=== PATIENT | male | born 1950 | race Caucasian/White ===

== ENCOUNTER 2023-09-16 11:56 | Outpatient (RCR) | payer OTHER, SELFPAY | END 2023-09-16 23:59 | disposition home or self-care (01) | LOC: RPT 11:56 | PROVIDERS: ATTENDING PHYSICIAN Specialist; PRIMARYCARE PHYSICIAN Family Medicine | DX: C61 Malignant neoplasm of prostate (principal); Z73.6 Limitation of activities due to disability; M62.81 Muscle weakness (generalized); R27.8 Other lack of coordination | CPT/HCPCS: 97140; 97530 ==

== ENCOUNTER 2023-10-22 15:28 | Outpatient (RCR) | payer OTHER, SELFPAY | END 2023-10-22 15:58 | disposition home or self-care (01) | LOC: RPT 15:28 | PROVIDERS: ATTENDING PHYSICIAN Specialist; PRIMARYCARE PHYSICIAN Family Medicine | DX: N42.89 Other specified disorders of prostate (principal); Z85.46 Personal history of malignant neoplasm of prostate; Z73.6 Limitation of activities due to disability | CPT/HCPCS: 97110; 97530 ==

== ENCOUNTER 2024-09-08 06:17 | Day surgery (SDC) | payer OTHER, SELFPAY | END 2024-09-08 08:35 | disposition home or self-care (01) | LOC: GI 06:17 | PROVIDERS: ATTENDING PHYSICIAN Specialist | DX: Z12.11 Encounter for screening for malignant neoplasm of colon (principal); D12.0 Benign neoplasm of cecum; D12.2 Benign neoplasm of ascending colon; D12.3 Benign neoplasm of transverse colon; K57.30 Diverticulosis of large intestine without perforation or abscess without bleeding; Z86.0101 Personal history of adenomatous and serrated colon polyps; Z80.0 Family history of malignant neoplasm of digestive organs | CPT/HCPCS: 45380; 88305 ==

== ENCOUNTER → 2025-05-05 07:36 | Outpatient (REF) | payer OTHER, SELFPAY | LOC: HWRCS 07:36 | PROVIDERS: ATTENDING PHYSICIAN Physician Assistant Medical; FAMILY PHYSICIAN Family Medicine | DX: I20.89 Other forms of angina pectoris (principal); I25.2 Old myocardial infarction; I25.10 Atherosclerotic heart disease of native coronary artery without angina pectoris; Z95.5 Presence of coronary angioplasty implant and graft | CPT/HCPCS: 78452; 93017; A9500; J2785 ==

== ENCOUNTER 2025-05-06 11:44 | Inpatient (IN) | payer OTHER, SELFPAY ==
[2025-05-06] VITALS (16 sets, daily range): BP systolic 110–148; BP diastolic 72–96; BMI 32.8
[2025-05-06 08:55] LABS: Hematocrit 45.8 % (39.0-52.0); Hemoglobin 16.1 g/dL (13.0-18.0); Mean Corp Hgb Conc. 35.2 g/dL (33.0-37.0); Mean Corpuscular Volume 97.7 fL (80.0-94.0); Platelet Count 243 10^3/uL (130-400); Red Cell Dist. Width 12.7 % (11.5-14.5)
[2025-05-06] MEDS: NSS 294 ML IV (08:58)
[2025-05-06 09:12] LABS: Blood Urea Nitrogen 20 mg/dl (9-20); Calcium 9.7 mg/dl (8.4-10.2); Carbon Dioxide 27 mmol/L (22-30); Chloride 102 mmol/L (98-107); Estimated Creatinine Clearance 76 ml/min; Glucose 116 mg/dl (70-99); Potassium 3.4 mmol/L (3.5-5.1); Sodium 139 mmol/L (135-145); eGFR > 60.00
[2025-05-06] MEDS: LOW STRENGTH ASPIRIN 81 MG PO (09:12)
--- NOTE | 2025-05-06 12:57 | CONSULT.CT ---
Consultation
-
Date/Time Consultation Requested: 05/06/25
Date/Time Consultation Performed: 05/06/25
Requesting Provider: Ilya Verdugo MD
Performing Provider: Damari BLAKE for Ziyad Tang MD
Reason for Consultation: CABG
Patient History
Physicians
Family Physician: Alexey Moore
Outpatient Machine Lacer: Ilya Verdugo
Inpatient Machine Lacer: [facility]
History of Present Illness
74-year-old male with past medical history significant for hypertension, hyperlipidemia, TX with CAD and stents in 2008, LILLIAN with CPAP use, prostate cancer status post prostatectomy in 2022, shingles, colon polypectomy in 2023, right knee meniscus
surgery, cholecystectomy, was admitted for left heart catheterization after abnormal stress test with due to ischemia in the LAD territory and complaint of intermittent left upper extremity pain noted during the past year. Left heart catheterization
reported multi vessel coronary disease and CT surgery consulted for CABG evaluation.
Past Medical History
Past Medical History: Angina (LUE pain), CAD, Cancer (prostate 2022), HTN, Hypercholesterolemia, TX (2008) and Other (shingles; LILLIAN w/CPAP; colon polyps; Class obesity (BMI 32.8); BPH/ED)
Past Surgical History
Past Surgical History: Cholecystectomy, Orthopedic (R knee meniscus surgery ), PCI/Stent (RCA 2008) and Other (Right cataract extraction; colon polypectomy 2023; LASIK B/L)
Dental History
N/A
Family History
Mother: at Age (59) and Cause of (breast cancer)
Father: at Age (75) and Cause of (cancer)
Social History
Alcohol: Daily (3-5 scitch/wine daily)
Drug: None
Tobacco: Former Smoker
Personal:
Living: With Spouse
Employment: Retired (computer customer support specialist)
Allergies
Allergy/AdvReac Type Severity Reaction Status Date / Time
ezetimibe (From Zetia) Allergy joint pain Verified 05/06/25 08:50
morphine Allergy Chest Verified 05/06/25 08:50
Tightness
Home Medications
�Medication �Instructions �Recorded �Confirmed �Type
amlodipine 5 mg tablet 5 mg PO DAILY Blood Pressure 11/23/10 05/06/25 History
aspirin 81 mg tablet,delayed 81 mg PO QPM Blood Clot 11/23/10 05/06/25 History
release Prevention/Tx
atorvastatin 40 mg tablet 40 mg PO QPM High Cholesterol 08/11/11 05/06/25 History
losartan 100 mg tablet (Cozaar) 100 mg PO DAILY Blood Pressure 08/11/11 05/06/25 History
chlorthalidone 25 mg tablet 25 mg PO DAILY Blood Pressure 07/21/23 05/06/25 History
fluticasone propionate 50 2 spray intranasal HS Allergies 07/21/23 05/06/25 History
mcg/actuation nasal
spray,suspension (Flonase Allergy
Relief)
diphenhydramine HCl 50 mg tablet 50 mg PO HS PRN sleep 05/06/25 05/06/25 History
docusate sodium 100 mg capsule 100 mg PO DAILY 05/06/25 05/06/25 History
(Stool Softener)
loratadine 10 mg tablet 10 mg PO DAILY 05/06/25 05/06/25 History
oxycodone-acetaminophen 10 mg-325 1 tab PO Q4H PRN pain 05/06/25 05/06/25 History
mg tablet (Percocet)
tadalafil 5 mg tablet 5 mg PO DAILY 05/06/25 05/06/25 History
Review of Systems
-
History Source: Patient
General: Reports No Symptoms
HEENT: Reports No Symptoms
Respiratory: Reports No Symptoms
Cardiac: Reports Other (LUE pain )
Abdomen/GI: Reports Other (intermittant rectal bleeding 3-5 days month-new this year)
: Reports No Symptoms
Musculoskeletal: Reports No Symptoms
Skin: Reports No Symptoms
Neurological: Reports No Symptoms
Vascular: Reports PVD (documented aortoiliac atherosclerosis)
Physical Exam
Vital Signs
Temp 97.7 F 05/06/25 12:04
Temp route: Oral 05/06/25 12:04
Pulse 73 05/06/25 09:20
Resp Rate 20 05/06/25 12:04
Blood pressure 145/95 05/06/25 08:45
Blood pressure extremity used: Left upper arm 05/06/25 12:04
Position: Lying 05/06/25 12:04
MAP (cuff-Ronaldo Monitor) 112 05/06/25 08:45
SaO2 95 05/06/25 12:04
Oxygen Mode of Delivery Room air 05/06/25 12:04
Can the patient verbally communicate their pain? Yes 05/06/25 08:30
Actual Weight 97.9 kg 05/06/25 08:30
Body Mass Index (BMI) 32.8 05/06/25 08:30
Labs
05/06/25 08:46
05/06/25 08:46
Diagnostic Studies
Heart Catheterization 05/06/25:
High-grade proximal LAD stenosis and probable mid LAD stenosis that was angiographically poorly defined. A sizable first diagonal branch (based on 2009 angiogram) is now noted to be 100% occluded proximally with the distal vessel filling via left
to left collaterals. There is a moderate terminal OM branch with a 60% stenosis and there is an eccentric 60% stenosis on the proximal edge of the overlapping Cypher stents from the mid to distal RCA and distal RCA in-stent restenosis.
Exam
General: Well Developed, Well Nourished and No Apparent Distress
HEENT: Normocephalic, Anicteric, Moist Mucous Membranes and PERRLA
Neck: Trachea Midline
Respiratory: Clear
Cardiac: S1/S2 and Regular Rhythm
GI: Soft, Non Tender and Normal Bowel Sounds
Rectal: Deferred by Provider
Skin: Warm and Dry
Neuro: AO x 3, No Motor Deficits and Nonfocal/Grossly Intact
Extremities: Pulses (+1/4 DP pulses B/L)
Lymph: No Lymphadenopathy
Psych: Calm
Assessment / Plan
-
74 year old male with know CAD, now admitted for multivessel CAD s/p [facility]
- Dr. Tang to review imaging and discuss risk/benefit with patient
- pre-op diagnostics ordered
- STS risk score when diagnostics completed
- will need to hold losartan 48 hours pre-op
Data Reviewed
-
EKG: Report Reviewed by me and Discussed with Physician
Menu Planner: Report Reviewed by me and Discussed with Physician
Echo: Report Reviewed by me and Discussed with Physician
Radiology: Report Reviewed by me and Discussed with Physician
Labs: Labs Reviewed by me and Discussed with Physician
Old Records: Reviewed
[2025-05-06 13:49] LABS: Albumin 4.7 g/dl (3.5-5.0)
--- NOTE | 2025-05-06 14:42 | ITS.CL.CATH ---
[facility] - Catheterization
Cardiac Catheterization
Procedure Report:
LEFT HEART CATHETERIZATION
Date of Procedure: May 06, 2025
Referring: Dr. Ilya Verdugo
PROCEDURES:
1. Left heart catheterization with coronary and single-plane left ventriculography
2. Selective left subclavian angiography and pullback to assess for gradient
INDICATION: This is a 74-year-old gentleman with a past medical history notable for an inferior wall myocardial infarction in November 2008. He underwent successful placement of overlapping 3.5 x 33 mm and 3.0 x 33 mm Cypher stents from the mid to
distal right coronary artery. The stented segment was postdilated with a 3.75 mm noncompliant balloon. He presented to our office for evaluation of substernal chest tightness and left arm discomfort beginning over the past 4 to 5 months. He
states that symptoms typically are worse at the beginning of physical activity and slowly improve. He does have a history of alcohol consumption between 2 and 5 drinks daily. He was a former smoker stopping in 2019. A recent stress study was
notable for a moderate to large reversible defect in the mid to distal anterior wall and a moderate reversible defect in the mid inferolateral basal inferolateral and apical inferior lowe. He is now referred for coronary angiography.
ACCESS: Attempted right radial access. Heavy calcification noted in the innominate artery. A baby J-wire could cross the calcified segment, however, diagnostic catheters encountered significant difficulty in crossing this calcified plaque and the
decision was made to abandon radial approach in favor of right common femoral arterial approach. Ultrasound guidance was utilized and a 6 Kyr[place]z sheath was inserted.
HEMODYNAMICS : (mmHg)
AO (s/d) : 133/76
LV (s/d) : 133/9
LVEDP : 38
Note: Heavy innominate calcification with inability to pass catheter from the right subclavian to the ascending aorta
CORONARY FINDINGS: Three-vessel coronary calcification
DOMINANCE: Right
LEFT MAIN: Short and unobstructed
LEFT ANTERIOR DESCENDING: Eccentric shaggy 95% proximal LAD stenosis. The first diagonal branch arises from the proximal third of the LAD and was noted to supply a moderate-sized territory on the angiogram from 2008. The first diagonal branch is
now occluded with the distal vessel filling via left to left collaterals. The mid LAD just beyond the diagonal branch has a hazy eccentric stenosis that is angiographically poorly defined. The mid to distal LAD is a large-caliber vessel with minor
irregularities.
CIRCUMFLEX: The circumflex gives rise to a small OM1, moderate caliber OM 2 and moderate caliber OM 3 that has a 60% mid stenosis.
RIGHT CORONARY ARTERY: The right coronary artery is a dominant vessel with overlapping 3.5 x 33 mm and 3.0 x 33 mm Cypher stents from the mid to distal RCA. There is a eccentric 60% stenosis on the proximal edge of the right coronary stents and
moderate 30-40% in-stent restenosis in the distal stent before the origin of the PDA.
VENTRICULOGRAPHY: Left ventriculography was performed in an CARVAJAL projection. The digital single-plane left ventricular ejection fraction is visually estimated at 60%.
LEFT SUBCLAVIAN ANGIOGRAPHY: A JR4 catheter was positioned at the origin of the left subclavian artery and hand-injection was performed to assess for significant atherosclerotic disease in the subclavian artery if the BOWENS graft were to be utilized.
The subclavian is moderately calcified. The JR4 catheter was advanced distally near the axillary artery and slow pullback was performed. There was no significant gradient noted on pullback across the moderate plaque in the proximal subclavian
artery.
SEDATION: 47 minutes of procedural sedation was utilized. An independent certified medical biller was present to assist with and help manage the patient's level of consciousness and physiologic status.
RADIATION SUMMARY: Fluoro Time (min): 11.1, Dose (mGy): 871, DAP (Gy.cm2) : 63.6
Closure Device: 6 Kyr[place]z Angio-Seal RFA and radial band right radial artery
CONCLUSIONS
1. Multivessel coronary artery disease with high-grade proximal LAD stenosis and probable mid LAD stenosis that was angiographically poorly defined. A sizable first diagonal branch (based on 2009 angiogram) is now noted to be 100% occluded
proximally with the distal vessel filling via left to left collaterals. There is a moderate terminal OM branch with a 60% stenosis and there is an eccentric 60% stenosis on the proximal edge of the overlapping Cypher stents from the mid to distal
RCA and distal RCA in-stent restenosis.
2. Preserved LV systolic function
3. Moderate plaque but no significant gradient was noted on pullback of a JR4 catheter from the axillary artery to the proximal descending aorta
RECOMMENDATIONS
1. Will consult CT surgery to consider surgical revascularization of LAD, diagonal, OM, and PDA.
Copy to: Dr. Ilya Verdugo
[2025-05-06] MEDS: KCL 40 MEQ PO (16:04)
[2025-05-06] MEDS: LASIX 40 MG IV (16:05)
--- NOTE | 2025-05-06 16:15 | CM ---
Chart reviewed. Patient is independent of ADLS, lives with his SO in a 1 [address], 3 [address], 0 DME. Plan is for the patient to return home. CM to follow
[2025-05-06] MEDS: LIPITOR 40 MG PO (17:51)
[2025-05-06] MEDS: ASPIR LOW (ENTERIC COATED) 81 MG PO (17:52)
--- NOTE | 2025-05-06 18:18 | PTCARENOTE ---
Addendum entered by Saniya Ybarra RN 05/06/25 18:21:
right groin site cdi.
Original Note:
pt is sr on the monitor,hr in the 90s,vss. pt offers no complaints at this time. right radial dressing is cdi. pt educated on plan of care for the evening and pt verbalized understanding. pt now ambulating in room and tolerating well. call toth
within reach.
[2025-05-06] MEDS: BENADRYL 50 MG PO (22:28)
[2025-05-07] VITALS (8 sets, daily range): BP systolic 105–148; BP diastolic 68–87; BMI 32.0
[2025-05-07 03:20] LABS: Hematocrit 43.6 % (39.0-52.0); Hemoglobin 15.6 g/dL (13.0-18.0); Mean Corp Hgb Conc. 35.8 g/dL (33.0-37.0); Mean Corpuscular Volume 97.1 fL (80.0-94.0); Platelet Count 224 10^3/uL (130-400); Red Cell Dist. Width 12.5 % (11.5-14.5)
[2025-05-07 03:32] LABS: INR 1.00; PT 13.5 Sec (11.4-14.6)
[2025-05-07 03:33] LABS: APTT 26.1 Sec (23.4-35.0)
[2025-05-07 03:54] LABS: ALT (SGPT) 61 U/L (0-50); AST (SGOT) 51 U/L (17-59); Albumin 4.4 g/dl (3.5-5.0); Alkaline Phosphatase 68 U/L (38-126); Blood Urea Nitrogen 20 mg/dl (9-20); Calcium 9.2 mg/dl (8.4-10.2); Carbon Dioxide 26 mmol/L (22-30); Chloride 103 mmol/L (98-107); Estimated Creatinine Clearance 75 ml/min; Glucose 108 mg/dl (70-99); HDL Cholesterol 34 mg/dl; Potassium 3.3 mmol/L (3.5-5.1); Sodium 138 mmol/L (135-145); Total Protein 7.2 g/dl (6.3-8.2); eGFR > 60.00
[2025-05-07 04:22] LABS: LDL Cholesterol, Direct 79 mg/dl
--- NOTE | 2025-05-07 04:55 | PTCARENOTE ---
Pt NSR to SB overnight. VSS. Pt denies any pain or discomfort. Pt using own CPAP at HS. Ambulates independently in the room. Call navneet w/in reach
[2025-05-07] MEDS: KCL 40 MEQ PO (06:03)
[2025-05-07] MEDS: CLARITIN 10 MG PO (08:22)
[2025-05-07] MEDS: COLACE 100 MG PO (08:22)
[2025-05-07] MEDS: NORVASC 5 MG PO (08:22)
[2025-05-07] MEDS: KCL 20 MEQ PO (08:23)
[2025-05-07] MEDS: COZAAR 100 MG PO (08:26)
[2025-05-07] MEDS: TOPROL XL 25 MG PO (08:26)
--- NOTE | 2025-05-07 08:37 | W.PN.CARDCBS ---
Addendum entered and electronically signed by Carlos Kearns MD 05/07/25 10:02:
I saw and examined the patient.
The SALES AGENT [employer] or PA's note was reviewed and I agree with the note.
Comment: General: Well developed, well nourished in NAD.
Neck: Supple, no JVD, HJR, carotids +2 B/L, no bruits bilaterally.
Heart: Non displaced PMI, RRR, no murmurs, No S3, S4, no rubs.
Lungs: Scattered rhonchi
Extremities: No clubbing, cyanosis or edema bilaterally.
Neuro: Grossly nonfocal, awake, alert and oriented x3.
Stable cardiology status. Await timing for CABG. He is for CAT scan of chest. Hold losartan
Original Note:
Today's Communication / Plan
-
Await CT surgery recommendations regarding revascularization
Will put home losartan on hold
Impression / Plan
-
Primary odd job worker: Dr. Verdugo
Impression:
CAD
-Stents in 2008 RCA, mid to distal
-Cardiac cath 05/06/2025 with multi vessel CAD
-Considering surgical revascularization, has been seen by CT surgery
Abnormal stress test-ischemia in LAD territory 04/2025
Hypertension
Hyperlipidemia
Inferior IL 2008
Obstructive sleep apnea on CPAP
Prostate cancer status post prostatectomy 2022
Shingles
Colon polypectomy in 2023
Right knee meniscus surgery
Cholecystectomy
Cardiovascular diagnostic testing:
LHC 05/06/25: High-grade proximal LAD stenosis and probable mid LAD stenosis that was angiographically poorly defined. A sizable first diagonal branch (based on 2008 angiogram) is now noted to be 100% occluded proximally with the distal vessel
filling via left to left collaterals. There is a moderate terminal OM branch with a 60% stenosis and there is an eccentric 60% stenosis on the proximal edge of the overlapping Cypher stents from the mid to distal RCA and distal RCA in-stent
restenosis
Echo 05/06/2025: EF 50 to 55%, mild LVH, RV normal size and function, mild aortic sclerosis, mild MR
Lexiscan nuclear stress test 05/05/2025: Moderate to large sized moderate to severe perfusion defects in apex, fixed, mid anterior wall that was reversible. Moderate size moderate perfusion defect in the inferior apical, mid inferior lateral, basal
inferior lateral regions which was partially reversible consistent with ischemia
Plan:
- Multivessel CAD on recent cardiac cath
- Surgical revascularization being considered and workup for CABG in progress
- Continue aspirin, statin, beta-jinny, amlodipine
- Will put home losartan on hold in anticipation of possible CT surgery. He did receive a dose today 05/07
- Home chlorthalidone on hold
Progress Note - Mate Relief
Subjective
Date of Service: May 07, 2025
Denies chest pain, shortness of breath
Objective
Labs:
05/07/25 03:02
05/07/25 03:02
Labs
Hgb 15.6 g/dL (13.0-18.0) 05/07/25 03:02
Hct 43.6 % (39.0-52.0) 05/07/25 03:02
Plt Count 224 10^3/uL (130-400) 05/07/25 03:02
PT 13.5 Sec (11.4-14.6) 05/07/25 03:02
INR 1.00 05/07/25 03:02
APTT 26.1 Sec (23.4-35.0) 05/07/25 03:02
Sodium 138 mmol/L (135-145) 05/07/25 03:02
Potassium 3.3 mmol/L (3.5-5.1) L 05/07/25 03:02
BUN 20 mg/dl (9-20) 05/07/25 03:02
Creatinine 1.0 mg/dL (0.7-1.3) 05/07/25 03:02
Glucose 108 mg/dl (70-99) H 05/07/25 03:02
Vital Signs and I&O:
Vital Signs
Temp Pulse Resp BP Pulse Ox
98.0 F 80 18 148/75 95
05/07/25 07:36 05/07/25 08:26 05/07/25 07:36 05/07/25 08:26 05/07/25 07:36
Vital Signs
Temp Pulse Resp BP Pulse Ox
98.0 F 80 18 148/75 95
05/07/25 07:36 05/07/25 08:26 05/07/25 07:36 05/07/25 08:26 05/07/25 07:36
Intake & Output
05/05/25 05/06/25 05/07/25 05/08/25
06:59 06:59 06:59 06:59
Intake Total 774 / 774
Output Total 825 / 825
Balance -51 / -51
Physical Exam
Physical Exam
GEN: No distress, awake, Ox3
HEENT: supple, anicteric, mmm
LUNGS: CTA, no wheezes/rales
CV: Reg, S1/S2, no murmur
ABD: soft, BS+, NT/ND
EXT: No edema
NEURO: Gross non-focal
SKIN: No rash
[2025-05-07 11:11] LABS: Glycohemoglobin (HgbA1c) 5.3 % (4.0-5.6)
[2025-05-07] MEDS: LIPITOR 40 MG PO (18:06)
[2025-05-07] MEDS: ASPIR LOW (ENTERIC COATED) 81 MG PO (18:06)
[2025-05-07] MEDS: LOVENOX 40 MG SC (18:06)
--- NOTE | 2025-05-07 20:51 | PTCARENOTE ---
assumed care of patient at the change of shift. resting in the chair comfortably. independent in the room. denies any cp/sob. SR on tele-70s. dressing removed from cath sites- R radial and groin. sites intact. + pulses/no edema. reviewed plan of
care with patient and verbalized understanding. IS provided. educated on importance. call toth within reach. makes needs known.
[2025-05-07 21:27] LABS: Hepatitis C Antibody Negative (Negative)
[2025-05-07] MEDS: BENADRYL 50 MG PO (22:23)
[2025-05-08 03:39] VITALS: BP 124/85
[2025-05-08 04:25] LABS: Hematocrit 43.8 % (39.0-52.0); Hemoglobin 15.5 g/dL (13.0-18.0); Mean Corp Hgb Conc. 35.4 g/dL (33.0-37.0); Mean Corpuscular Volume 97.6 fL (80.0-94.0); Platelet Count 234 10^3/uL (130-400); Red Cell Dist. Width 12.5 % (11.5-14.5)
[2025-05-08 04:52] LABS: Blood Urea Nitrogen 21 mg/dl (9-20); Calcium 9.8 mg/dl (8.4-10.2); Carbon Dioxide 26 mmol/L (22-30); Chloride 103 mmol/L (98-107); Estimated Creatinine Clearance 75 ml/min; Glucose 101 mg/dl (70-99); Magnesium 2.2 mg/dl (1.6-2.3); Potassium 3.4 mmol/L (3.5-5.1); Sodium 138 mmol/L (135-145); eGFR > 60.00
[2025-05-08] MEDS: KCL 40 MEQ PO (06:07)
--- NOTE | 2025-05-08 06:50 | W.PN.CT ---
Today's Communication / Plan
-
Plan:
-Cont. current medical management per primary team
-Cont. current meds (ASA, Lipitor, Toprol Xl)
-Avoid DARCY-I/ARBs/CCB x 48hrs prior to OR, will place both Cozaar and Norvasc on hold
-Replete K+
-Ongoing preop evaluation/workup
-For CABG +/- LAAE by Dr. Tang on Wednesday 05/09
-Will cont. to closely monitor
Assessment / Plan
-
Assessment:
-Severe multivessel CAD
-Hx CAD/Inferior RI S/P PCI with cypher stents to mid-distal RCA 2008
-Abnormal stress test-ischemia in LAD territory 04/2025
-LVEF 50-55%
-Mild MR
-Hypertension
-Hyperlipidemia
-Class 1 obesity (BMI 32)
-Obstructive sleep apnea (on CPAP @ home)
-Former tobacco use
-Shingles
-Prostate cancer S/P prostatectomy, 2022
-Colon polyps S/P polypectomy, 2023; occasional rectal bleeds
-S/P Right knee meniscus surgery
-S/P Right cataract extraction
-S/p LASIK
-S/P Cholecystectomy
Discussed patient care with: Cardiology, Nursing, Pharmacy and Care Team
Subjective
-
Date of Service: May 08, 2025
No issues overnight. Denies CP/SOB
Objective Data
-
Lab Results
05/08/25 03:39
05/08/25 03:39
PT 13.5 Sec (11.4-14.6) 05/07/25 03:02
INR 1.00 05/07/25 03:02
APTT 26.1 Sec (23.4-35.0) 05/07/25 03:02
Vital Signs
Vital Signs
Temp Pulse Resp BP Pulse Ox
98.2 F 53 20 124/85 96
05/08/25 03:57 05/08/25 05:00 05/08/25 03:57 05/08/25 03:39 05/08/25 03:57
CT Intake/Output/Weight
05/07/25 05/07/25 05/08/25
06:59 18:59 06:59
Intake Total 480 / 480
Output Total 625 / 825 250 / 450 200 / 450
Balance -625 / -51 230 / 30 -200 / 30
SaO2: 96 (RA)
Physical Exam
-
General: Awake, Oriented and AOx3
Cardiovascular: Regular rate & rhythm, No Murmurs, No Rub and No Gallop
Respiratory: Decreased Breath Sounds (at bases)
Extremities: No Edema
Data Reviewed
-
Lab Results: Results Reviewed
Medications: Active Meds Reviewed
Chest X-Ray: Report Reviewed and Image Reviewed
ECG: Report Reviewed and Image Reviewed
[2025-05-08 07:13] VITALS: BP 118/77
[2025-05-08] MEDS: TOPROL XL 25 MG PO (08:25)
[2025-05-08] MEDS: CLARITIN 10 MG PO (08:25)
[2025-05-08] MEDS: COLACE 100 MG PO (08:25)
[2025-05-08] MEDS: KCL 20 MEQ PO (08:26)
--- NOTE | 2025-05-08 08:41 | W.PN.CARDCBS ---
Today's Communication / Plan
-
For CABG in a.m.
Impression / Plan
-
Primary relationship assoc: Dr. Verdugo
Impression:
CAD
-Stents in 2008 RCA, mid to distal
-Cardiac cath 05/06/2025 with multi vessel CAD
-Considering surgical revascularization, has been seen by CT surgery
Abnormal stress test-ischemia in LAD territory 04/2025
Hypertension
Hyperlipidemia
Inferior SD 2008
Obstructive sleep apnea on CPAP
Prostate cancer status post prostatectomy 2022
Shingles
Colon polypectomy in 2023
Right knee meniscus surgery
Cholecystectomy
Cardiovascular diagnostic testing:
LHC 05/06/25: High-grade proximal LAD stenosis and probable mid LAD stenosis that was angiographically poorly defined. A sizable first diagonal branch (based on 2008 angiogram) is now noted to be 100% occluded proximally with the distal vessel
filling via left to left collaterals. There is a moderate terminal OM branch with a 60% stenosis and there is an eccentric 60% stenosis on the proximal edge of the overlapping Cypher stents from the mid to distal RCA and distal RCA in-stent
restenosis
Echo 05/06/2025: EF 50 to 55%, mild LVH, RV normal size and function, mild aortic sclerosis, mild MR
Lexiscan nuclear stress test 05/05/2025: Moderate to large sized moderate to severe perfusion defects in apex, fixed, mid anterior wall that was reversible. Moderate size moderate perfusion defect in the inferior apical, mid inferior lateral, basal
inferior lateral regions which was partially reversible consistent with ischemia
Plan:
For CABG in a.m.
Chlorthalidone and losartan on hold
Progress Note - Sap Bpc Architect
Subjective
Date of Service: May 08, 2025
No chest pain or shortness of breath
Objective
Labs:
05/08/25 03:39
05/08/25 03:39
Labs
Hgb 15.5 g/dL (13.0-18.0) 05/08/25 03:39
Hct 43.8 % (39.0-52.0) 05/08/25 03:39
Plt Count 234 10^3/uL (130-400) 05/08/25 03:39
PT 13.5 Sec (11.4-14.6) 05/07/25 03:02
INR 1.00 05/07/25 03:02
APTT 26.1 Sec (23.4-35.0) 05/07/25 03:02
Sodium 138 mmol/L (135-145) 05/08/25 03:39
Potassium 3.4 mmol/L (3.5-5.1) L 05/08/25 03:39
BUN 21 mg/dl (9-20) H 05/08/25 03:39
Creatinine 1.0 mg/dL (0.7-1.3) 05/08/25 03:39
Glucose 101 mg/dl (70-99) H 05/08/25 03:39
Vital Signs and I&O:
Vital Signs
Temp Pulse Resp BP Pulse Ox
98.3 F 80 20 118/77 96
05/08/25 07:15 05/08/25 08:25 05/08/25 07:15 05/08/25 08:25 05/08/25 07:32
Vital Signs
Temp Pulse Resp BP Pulse Ox
98.3 F 80 20 118/77 96
05/08/25 07:15 05/08/25 08:25 05/08/25 07:15 05/08/25 08:25 05/08/25 07:32
Intake & Output
05/06/25 05/07/25 05/08/25 05/09/25
06:59 06:59 06:59 06:59
Intake Total 774 / 774 480 / 480
Output Total 825 / 825 450 / 450
Balance -51 / -51 30 / 30
Physical Exam
Physical Exam
General: Well developed, well nourished in NAD.
Neck: Supple, no JVD, HJR, carotids +2 B/L, no bruits bilaterally.
Heart: Non displaced PMI, RRR, no murmurs, No S3, S4, no rubs.
Lungs: Clear to auscultation bilaterally, no wheeze, rhonchi, rubs bilaterally,
normal expiratory phase.
Extremities: No clubbing, cyanosis or edema bilaterally.
Neuro: Grossly nonfocal, awake, alert and oriented x3.
--- NOTE | 2025-05-08 09:05 | PTCARENOTE ---
received patient this am sitting in chair eating breakfast. monitor shows NSR, VSS. MSAS score is 0. patient is waiting to hear from CVsurgeon today. I/S 2700, patient wears CPAP at night.
--- NOTE | 2025-05-08 10:25 | W.PN.UPDATE ---
Update Note
Progress Note Update
CARDIAC SURGERY ATTENDING:
It was my extreme pleasure to meet with Mr. Hector Tomlin. He is a very pleasant 74-year-old gentleman with a history of CAD status post prior stenting to his RCA in 2008. He recently underwent an stress test that demonstrated abnormal stress test
induced ischemia in his LAD territory. He underwent cardiac catheterization on 05/06/2025 that demonstrated multivessel CAD. He had an echocardiogram that same day which demonstrated an LVEF of 50 to 55% with mild LVH, normal RV function, mild
aortic sclerosis and mild MR. Given his multivessel CAD, I was asked to evaluate for potential for surgical coronary revascularization. On review of his cardiac catheterization imaging, he would primarily benefit from grafting of his LAD, with
additional grafts to his RCA and his occluded diagonal. His terminal left circumflex also has disease, but this coronary is likely too small to accommodate surgical bypass.
Unfortunately, during the course of his workup, he underwent a CT chest without contrast that demonstrated profound ascending aortic and arch calcifications. These preclude cross-clamp application. It is also highly likely that proximal
anastomoses would be challenging given this degree of aortic calcification. I have asked my interventional cardiology colleagues to reassess for PCI potential. It is my hope that this is possible as I believe this will be associated with a more
favorable risk versus benefit profile. I discussed this with the patient who is agreeable. I would offer surgical backup should PCI options be deemed appropriate. I will keep the patient n.p.o. postmidnight tonight for the potential of
intervention tomorrow.
Thank you for the opportunity to participate in the care of this kind gentleman.
Ziyad Tang MD
[phone]
[2025-05-08 11:41] VITALS: BP 126/76
[2025-05-08 15:57] VITALS: BP 124/76
[2025-05-08] MEDS: LOVENOX 40 MG SC (17:13)
[2025-05-08] MEDS: LIPITOR 40 MG PO (17:14)
[2025-05-08] MEDS: ASPIR LOW (ENTERIC COATED) 81 MG PO (17:14)
[2025-05-08 19:05] VITALS: BP 150/79
[2025-05-08 22:43] VITALS: BP 120/77
[2025-05-08] MEDS: BENADRYL 50 MG PO (22:45)
[2025-05-09 03:24] VITALS: BP 124/83
[2025-05-09 03:26] VITALS: BMI 32.2
--- NOTE | 2025-05-09 04:25 | PTCARENOTE ---
Pt NSR to SB on monitor. VSS. MSAS d/c per protocol. Pt denies SOB or any discomfort. Independent in the room. NPO after midnight. Call navneet w/in reach
[2025-05-09 04:49] LABS: Blood Urea Nitrogen 16 mg/dl (9-20); Calcium 9.6 mg/dl (8.4-10.2); Carbon Dioxide 29 mmol/L (22-30); Chloride 104 mmol/L (98-107); Estimated Creatinine Clearance 75 ml/min; Glucose 100 mg/dl (70-99); Magnesium 2.1 mg/dl (1.6-2.3); Potassium 3.7 mmol/L (3.5-5.1); Sodium 138 mmol/L (135-145); eGFR > 60.00
[2025-05-09 07:46] VITALS: BP 131/91
[2025-05-09] MEDS: COLACE 100 MG PO (08:27)
[2025-05-09] MEDS: CLARITIN 10 MG PO (08:27)
[2025-05-09] MEDS: TOPROL XL 25 MG PO (08:27)
[2025-05-09] MEDS: KCL 20 MEQ PO (08:27)
--- NOTE | 2025-05-09 09:00 | PTCARENOTE ---
received PT AAOx4 w/o complaints of pain; NSR vss, RA clear lung sounds; GI and wnl; cath puncture sights CDI; PIV's CDI; see worklist for detailed assessment
--- NOTE | 2025-05-09 09:22 | W.PN.CARDCBS ---
Addendum entered and electronically signed by HAYDEN Castillo 05/16/25 17:29:
Additional impression: Hypokalemia.
Addendum entered and electronically signed by Carlos Kearns MD 05/09/25 10:09:
I saw and examined the patient.
The SERVICE CENTER ASSISTANT or PA's note was reviewed and I agree with the note.
Comment: General: Well developed, well nourished in NAD.
Neck: Supple, no JVD, HJR, carotids +2 B/L, no bruits bilaterally.
Heart: Non displaced PMI, RRR, no murmurs, No S3, S4, no rubs.
Lungs: Clear to auscultation bilaterally, no wheeze, rhonchi, rubs bilaterally,
normal expiratory phase.
Extremities: No clubbing, cyanosis or edema bilaterally.
Neuro: Grossly nonfocal, awake, alert and oriented x3.
Stable cardiology status. Await timing for PCI which likely will be 05/10. Discussed with patient and on phone. Discussed with nursing.
Original Note:
Today's Communication / Plan
-
-await LHC in next 1-2 days
-increase statin
Impression / Plan
-
Primary armed security officer: Dr. Verdugo
Impression:
CAD
-Stents in 2008 RCA, mid to distal
-Cardiac cath 05/06/2025 with multi vessel CAD
-Consideration for surgical revascularization but pre-op CT chest with ascending aortic and arch calcifications that preclude cross clamp application and increase surgical risk
Abnormal stress test-ischemia in LAD territory 04/2025
Hypertension
Hyperlipidemia
Inferior [place] 2008
Obstructive sleep apnea on CPAP
Prostate cancer status post prostatectomy 2022
Shingles
Colon polypectomy in 2023
Right knee meniscus surgery
Cholecystectomy
Cardiovascular diagnostic testing:
LHC 05/06/25: High-grade proximal LAD stenosis and probable mid LAD stenosis that was angiographically poorly defined. A sizable first diagonal branch (based on 2009 angiogram) is now noted to be 100% occluded proximally with the distal vessel
filling via left to left collaterals. There is a moderate terminal OM branch with a 60% stenosis and there is an eccentric 60% stenosis on the proximal edge of the overlapping Cypher stents from the mid to distal RCA and distal RCA in-stent
restenosis
Echo 05/06/2025: EF 50 to 55%, mild LVH, RV normal size and function, mild aortic sclerosis, mild MR
Lexiscan nuclear stress test 05/05/2025: Moderate to large sized moderate to severe perfusion defects in apex, fixed, mid anterior wall that was reversible. Moderate size moderate perfusion defect in the inferior apical, mid inferior lateral, basal
inferior lateral regions which was partially reversible consistent with ischemia
Plan:
- CT surgery evaluated patient for revascularization -chest CT without contrast demonstrated profound ascending aortic and arch calcifications which preclude cross-clamp application and make proximal anastomosis challenging. CT surgery has
recommended interventional treatment of CAD.
-Plan for left heart cath with stenting 05/10 or 05/11
-Chlorthalidone, losartan on hold, will continue to hold until postprocedure
-Amlodipine on hold - consider resume if BPs elevated
-no CP
-cont ASA, statin, beta jinny
-FLP 16: LDL 79, HDL 34, TG 423, tchol 172- increase Atorvastatin to 80 mg, goal LDL <55
Progress Note - Pot Room Supervisor
Subjective
Date of Service: May 09, 2025
no CP
frustrated that not candidate for CABG and may need to wait for C
Objective
Labs:
05/08/25 03:39
05/09/25 03:30
Labs
Hgb 15.5 g/dL (13.0-18.0) 05/08/25 03:39
Hct 43.8 % (39.0-52.0) 05/08/25 03:39
Plt Count 234 10^3/uL (130-400) 05/08/25 03:39
PT 13.5 Sec (11.4-14.6) 05/07/25 03:02
INR 1.00 05/07/25 03:02
APTT 26.1 Sec (23.4-35.0) 05/07/25 03:02
Sodium 138 mmol/L (135-145) 05/09/25 03:30
Potassium 3.7 mmol/L (3.5-5.1) 05/09/25 03:30
BUN 16 mg/dl (9-20) 05/09/25 03:30
Creatinine 1.0 mg/dL (0.7-1.3) 05/09/25 03:30
Glucose 100 mg/dl (70-99) H 05/09/25 03:30
Vital Signs and I&O:
Vital Signs
Temp Pulse Resp BP Pulse Ox
97.9 F 55 16 131/91 97
05/09/25 07:44 05/09/25 07:44 05/09/25 07:44 05/09/25 08:27 05/09/25 07:44
Vital Signs
Temp Pulse Resp BP Pulse Ox
97.9 F 55 16 131/91 97
05/09/25 07:44 05/09/25 07:44 05/09/25 07:44 05/09/25 08:27 05/09/25 07:44
Intake & Output
05/07/25 05/08/25 05/09/25 05/10/25
06:59 06:59 06:59 06:59
Intake Total 774 / 774 480 / 480
Output Total 825 / 825 450 / 450
Balance -51 / -51
Physical Exam
Physical Exam
GEN: No distress, awake, Ox3
HEENT: supple, anicteric, mmm
LUNGS: CTA, no wheezes/rales
CV: Reg, S1/S2,no murmur
ABD: soft, BS+, NT/ND
EXT: No edema
NEURO: Gross non-focal
SKIN: No rash
--- NOTE | 2025-05-09 10:31 | PN.CDI ---
CDI
- -
CDI:
Physician Documentation Request
Admit Date: 05/06/25 11:44
Dear Cardiology,
Clinical Indicators:
Patient admitted with CAD.
Orders: 05/06/25 12:03 Potassium Chloride [KCl] 40 meq PO NOW STA
05/07/25 04:49 Potassium Chloride [KCl] 40 meq PO NOW STA
05/08/25 05:04 Potassium Chloride [KCl] 40 meq PO NOW STA
Potassium levels:
05/06/25 05/07/25 05/08/25
08:46 03:02 03:39
Potassium 3.4 L 3.3 L 3.4 L
Based on the above, could you clarify in the progress notes, the appropriate diagnosis, if significant, that supports the above abnormalities and additional evaluation, monitoring and/or treatment rendered:
Hypokalemia
Abnormal lab values, clinically insignificant
Other, please specify
Use of terms such as suspected, likely, concern for, or probable (associated with a specific diagnosis that is being evaluated, monitored, or treated as if it exists) are acceptable and can be coded in the inpatient setting, when documented at the
time of discharge.
Thank you,
VALENTINA Cha RN
CDI Specialist
available via tiger text
Please use your independent medical judgment in providing your response.
[2025-05-09 11:25] VITALS: BP 127/82
[2025-05-09] MEDS: PLAVIX 600 MG PO (13:45)
[2025-05-09 14:02] VITALS: BP 115/78
[2025-05-09] MEDS: LOVENOX 40 MG SC (19:06)
[2025-05-09] MEDS: ASPIR LOW (ENTERIC COATED) 81 MG PO (19:06)
[2025-05-09] MEDS: LIPITOR 80 MG PO (19:06)
[2025-05-09 19:18] VITALS: BP 144/84
--- NOTE | 2025-05-09 21:50 | PTCARENOTE ---
Received patient at change of shift. SR on the monitor HR in the 60s. CPAP HS. R wrist and R groin intact. NPO midnight. No complaints from pt at this time, call toth within reach.
[2025-05-09 22:01] VITALS: BP 113/95
[2025-05-09] MEDS: BENADRYL 50 MG PO (22:02)
[2025-05-10] VITALS (19 sets, daily range): BP systolic 73–166; BP diastolic 54–98
[2025-05-10 04:13] LABS: Hematocrit 41.8 % (39.0-52.0); Hemoglobin 14.9 g/dL (13.0-18.0); Mean Corp Hgb Conc. 35.6 g/dL (33.0-37.0); Mean Corpuscular Volume 95.2 fL (80.0-94.0); Platelet Count 204 10^3/uL (130-400); Red Cell Dist. Width 12.3 % (11.5-14.5)
[2025-05-10 04:40] LABS: Blood Urea Nitrogen 18 mg/dl (9-20); Calcium 9.2 mg/dl (8.4-10.2); Carbon Dioxide 24 mmol/L (22-30); Chloride 106 mmol/L (98-107); Estimated Creatinine Clearance 83 ml/min; Glucose 98 mg/dl (70-99); Potassium 3.6 mmol/L (3.5-5.1); Sodium 138 mmol/L (135-145); eGFR > 60.00
[2025-05-10] MEDS: KCL 20 MEQ PO (08:34)
[2025-05-10] MEDS: TOPROL XL PO (08:34)
[2025-05-10] MEDS: COLACE 100 MG PO (08:34)
[2025-05-10] MEDS: CLARITIN 10 MG PO (08:34)
[2025-05-10] MEDS: TOPROL XL 25 MG PO (08:46)
[2025-05-10] MEDS: PLAVIX 75 MG PO (08:46)
--- NOTE | 2025-05-10 09:16 | PTCARENOTE ---
VSS. AM meds given as ordered. SB/SR. 96% RA. report given to laborer cook house, sent in bed for PCI. will continue to monitor.
--- NOTE | 2025-05-10 09:19 | ITS.CL.CATH ---
Class B Truck Driver - Catheterization
Cardiac Catheterization
Procedure Report:
CORONARY INTERVENTION
Date of Procedure: May 10, 2025
Referring: Dr. Ilya Verdugo
PROCEDURES:
1. Left heart catheterization
2. Moderate Sedation
3. Successful percutaneous coronary artery intervention of eccentric hazy 95% proximal LAD stenosis with one 3.0 x 15 mm Medtronic John drug-eluting stent, postdilated using IVUS guidance with a 3.75mm balloon at high pressure with an excellent
angiographic and IVUS based result.
4. Intravascular Ultrasound (IVUS)
INDICATION: This is a 74-year-old gentleman with a past medical history notable for an inferior wall myocardial infarction in November 2008. He underwent successful placement of overlapping 3.5 x 33 mm and 3.0 x 33 mm Cypher stents from the mid to
distal right coronary artery. The stented segment was postdilated with a 3.75 mm noncompliant balloon. He presented to our office for evaluation of substernal chest tightness and left arm discomfort beginning over the past 4 to 5 months. He
states that symptoms typically are worse at the beginning of physical activity and slowly improve. He does have a history of alcohol consumption between 2 and 5 drinks daily. He was a former smoker stopping in 2019. A recent stress study was
notable for a moderate to large reversible defect in the mid to distal anterior wall and a moderate reversible defect in the mid inferolateral basal inferolateral and apical inferior lowe. He underwent a recent diagnostic heart catheterization on
May 06, 2025 and was found to have a eccentric, heavily calcified proximal LAD stenosis. 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
being referred for percutaneous coronary intervention. He was loaded with 600mg plavix yesterday.
ACCESS: Left common femoral arterial approach. Ultrasound guidance was utilized and a 6 Faroese sheath was inserted.
HEMODYNAMICS : (mmHg)
AO (s/d) : 131/77
LVEDP : 20
CORONARY FINDINGS: Three-vessel coronary calcification
DOMINANCE: Right
LEFT MAIN: Short and unobstructed
LEFT ANTERIOR DESCENDING: Eccentric shaggy 95% proximal LAD stenosis. The first diagonal branch arises from the proximal third of the LAD and was noted to supply a moderate-sized territory on the angiogram from 2008. The first diagonal branch is
now occluded with the distal vessel filling via left to left collaterals. The mid LAD just beyond the diagonal branch has a hazy eccentric stenosis that is angiographically poorly defined. The mid to distal LAD is a large-caliber vessel with minor
irregularities.
CIRCUMFLEX: The circumflex gives rise to a small OM1, moderate caliber OM 2 and moderate caliber OM 3 that has a 60% mid stenosis.
CORONARY INTERVENTION: We then proceeded with percutaneous coronary intervention of the LAD. The patient was given adjunctive IV unfractionated heparin (target ACT > 300 seconds) and had received aspirin plus clopidogrel pre-treatment. After using a
7F EBU 3.5 guide�catheter to engage the left main ostium, an 0.014' RunThrough wire was navigated into the distal LAD. The severe 90% stenosis (LISSETTE III, type ) was pre-dilated with a 3.0 mm balloon. We then performed IVUS for stent sizing and need
for plaque modification. Further dilation with a 3.5 mm balloon was performed. We then stented with a 3.5 x 22 mm John Pilgrim drug-eluting stent, which was post-dilated with 3.5 and 4.0 mm NC balloons at high pressure. We then performed
intravascular imaging with a [employer] intravascular ultrasound�catheter that showed excellent stent expansion and apposition without proximal or distal edge dissection. There was 0% residual stenosis of the stented segment and preserved LISSETTE-3 flow
at completion angiography.
SEDATION: 47 minutes of procedural sedation was utilized. An independent medical attendant was present to assist with and help manage the patient's level of consciousness and physiologic status.
RADIATION SUMMARY: Fluoro Time (min): 19.4, Dose (mGy): 1540.3, DAP (Gy.cm2) : 82.8
Closure Device: 6 Faroese Angio-Seal RFA and radial band right radial artery
CONCLUSIONS
1. Successful percutaneous coronary artery intervention of eccentric hazy 95% proximal LAD stenosis with one 3.0 x 15 mm Medtronic [place] drug-eluting stent, postdilated using IVUS guidance with a 3.75mm balloon at high pressure with an excellent
angiographic and IVUS based result.
2. LVEDP is 20mmHg
RECOMMENDATIONS
1. Bedrest per protocol post left common femoral arterial access. Sheath to be pulled manually once ACT is below 170 ms.
2. Continue aggressive medical therapy and risk factor modification for secondary CAD prevention.
3. Continue ASA 81 mg daily for life.
4. Continue Plavix for at least 12 months of uninterrupted dual anti-platelet therapy given drug-eluting stent (GRGEG) implantation to mitigate the risk of stent thrombosis. This is not to be stopped for any reason without the guidance of a
director cpg.
5. Hydrate with normal saline to mitigate the risk of contrast-induced acute kidney injury.
6. Referral for outpatient cardiac rehab.
7. Follow-up with Dr. Verdugo
Copy to: Dr. Ilya Verdugo
Norah Milan MD, [facility], [facility]
[2025-05-10 10:15] LABS: ACT-LR - POC 252 Seconds (116-155)
[2025-05-10 10:55] LABS: ACT-LR - POC 382 Seconds (116-155)
[2025-05-10 11:21] LABS: ACT-LR - POC 294 Seconds (116-155)
[2025-05-10 12:24] LABS: ACT-LR - POC 223 Seconds (116-155)
--- NOTE | 2025-05-10 12:33 | W.PN.UPDATE ---
Update Note
Progress Note Update
CTSP re: groin hematoma at arterial sheath site. Pressure had been held distal to site with some improvement, however, after a few minutes post compression, the HT began to expand circumferentially around site. It was firm and expanded into groin.
Hemodynamically stable, with SBP>100, no pain or tenderness at site, awake and alert.
ACT was 264, repeat 223. Manual compression held and Dr. Milan aware, at bedside. Sheath pulled by Dr. Milan with manual compression for a full 30 minutes. Stat H&H and type&screen sent. Pt is comfortable without symptoms. SBP 130s, HR 50s which is
around baseline for him.
Maintain bedrest for 4 hours post compression.
--- NOTE | 2025-05-10 13:03 | PTCARENOTE ---
Rec'd report from Bianca in the laboratory supervisor & rec'd pt back AAOx3 w/no c/o CP or SOB. Pt w/L femoral artery sheath still in place w/dressing C/D/I. Noticeable hematoma developing below sheath insertion site. Manual pressure applied & pt developed a 2nd
hematoma above sheath insertion site-manual pressure applied to new site & Grain Broker And Market Operator PA notified.
Shirley Sanchez in to see pt & Dr Milan called in as well. Manual pressure applied. Repeat ACT taken. slabber called to pull sheath. Pt's BP dropped during manual pressure, 500mL NSS bolus given. slabber completed manual pressure post sheath removal &
dressing C/D/I. Pt advised of activity restrictions, including 4 hrs of strict bedrest. Pt verbalized his understanding. Pt w/call toth within reach.
[2025-05-10 13:31] LABS: Hematocrit 28.4 % (39.0-52.0); Hemoglobin 9.8 g/dL (13.0-18.0); Mean Corp Hgb Conc. 34.5 g/dL (33.0-37.0); Mean Corpuscular Volume 100.7 fL (80.0-94.0); Platelet Count 121 10^3/uL (130-400); Red Cell Dist. Width 12.4 % (11.5-14.5)
[2025-05-10 14:01] LABS: ACT-LR - POC > 397 Seconds (116-155)
[2025-05-10 15:26] LABS: Hematocrit 39.2 % (39.0-52.0); Hemoglobin 13.6 g/dL (13.0-18.0); Mean Corp Hgb Conc. 34.7 g/dL (33.0-37.0); Mean Corpuscular Volume 99.2 fL (80.0-94.0); Platelet Count 207 10^3/uL (130-400); Red Cell Dist. Width 12.2 % (11.5-14.5)
--- NOTE | 2025-05-10 15:59 | CM ---
Reviewed chart. Met with Mr. Nabor de la cruz review discharge plans. He states he has his cardiac cath today and maybe able to go home soon. He states prior to admission he resides with his significant other in a one story home with three steps to
enter. He states prior to admission he was independent with ambulation and adls. He states he has a CPAP Machine at home and no other DME. He states he has a prescription plan. Medical work-up in progress. The discharge plan is to return home
with his significant other when medically stable.
--- NOTE | 2025-05-10 17:44 | PTCARENOTE ---
Pt's L groin access site w/dressing w/some sanguineous drainage & a large amount of dark, purple/red ecchymosis present, but no signs or symptoms of hematoma. Dressing changed prior to pt being assisted OOB after completing 4 hrs of bedrest
post-cath. Pt ambulated around the room briefly, went to the BR, & dressing remained C/D/I. Pt OOB to w/call ttoh within reach.
[2025-05-10] MEDS: ASPIR LOW (ENTERIC COATED) 81 MG PO (18:00)
[2025-05-10] MEDS: LIPITOR 80 MG PO (18:00)
[2025-05-10] MEDS: BENADRYL 50 MG PO (22:28)
--- NOTE | 2025-05-11 00:29 | PTCARENOTE ---
Pt rec'd at change of shift oob in recliner chair. No c/o pain. Left groin evaluated at change of shift by day and shift production associate nurse.Left groin has remained slightly firm below puncture site (upper thigh) but no change noted from previous shift. Pt
denies pain from site, ambulating safely in room.
[2025-05-11 03:26] VITALS: BP 110/92
[2025-05-11 03:51] LABS: Hematocrit 36.2 % (39.0-52.0); Hemoglobin 12.5 g/dL (13.0-18.0); Mean Corp Hgb Conc. 34.5 g/dL (33.0-37.0); Mean Corpuscular Volume 99.7 fL (80.0-94.0); Platelet Count 211 10^3/uL (130-400); Red Cell Dist. Width 12.6 % (11.5-14.5)
[2025-05-11 04:10] LABS: Blood Urea Nitrogen 27 mg/dl (9-20); Calcium 8.9 mg/dl (8.4-10.2); Carbon Dioxide 25 mmol/L (22-30); Chloride 106 mmol/L (98-107); Estimated Creatinine Clearance 68 ml/min; Glucose 141 mg/dl (70-99); Potassium 3.3 mmol/L (3.5-5.1); Sodium 139 mmol/L (135-145); eGFR > 60.00
[2025-05-11 07:39] VITALS: BP 132/81
[2025-05-11] MEDS: NORVASC 5 MG PO (09:02)
[2025-05-11] MEDS: KCL 20 MEQ PO (09:02)
[2025-05-11] MEDS: CLARITIN 10 MG PO (09:02)
[2025-05-11] MEDS: PLAVIX 75 MG PO (09:02)
[2025-05-11] MEDS: COZAAR 100 MG PO (09:03)
[2025-05-11] MEDS: TOPROL XL 25 MG PO (09:03)
[2025-05-11] MEDS: COLACE PO (09:03)
--- NOTE | 2025-05-11 10:17 | W.PN.CARDCBS ---
Addendum entered and electronically signed by Norah Milan MD 05/11/25 17:42:
I saw and examined the patient.
The Bundle Helper's note was reviewed and I agree with the note.
Comment:
Overall patient had an uneventful night. Left groin is severely ecchymotic but otherwise stable. No discomfort. No chest discomfort or shortness of breath. He has been ambulating the halls without any difficulty.
Vital signs and lab work reviewed. Patient is out of bed into a chair, or awake, alert and oriented x 3, obese, regular rate, normal S1 and S2, no murmurs, rubs or gallops, no JVD, lungs are clear to auscultation bilaterally, abdomen is obese,
soft, nontender, nondistended with active bowel sounds, warm extremities without significant edema. Bilateral groin sites without evidence of hematoma or bruit on exam. Significant ecchymosis noted over the left groin site with no tenderness.
.
Recommendations:
1. Patient is status post proximal LAD PCI with plan to continue dual antiplatelet therapy with daily baby aspirin, Plavix, high intensity statin and beta-jinny as tolerated.
2. We have continued inpatient 5 mg of amlodipine a second antianginal along with his Cozaar and chlorthalidone had been on hold but we will resume this given LVEDP elevated at 20 mmHg on heart catheterization yesterday.
3. Outpatient cardiology follow-up will be set up.
4. Referral for outpatient cardiac rehab and educated patient in regards to importance of this.
5. Educated patient in regards to importance of medication compliance and following a high-fiber Mediterranean type diet with increasing physical activity with overall goal for weight loss to optimize his cardiovascular risk.
.
Otherwise stable for discharge from a cardiac standpoint.
Norah Milan MD, [facility], [facility]
Addendum entered and electronically signed by Alyse Christianson PA-C 05/11/25 16:23:
[id number]
Original Note:
Today's Communication / Plan
-
Continue aspirin, Plavix, Toprol, Cozaar, Norvasc, Lipitor, chlorthalidone
Plan for discharge today
Outpatient cardiac follow-up arranged
Cardiac rehab
Impression / Plan
-
Primary cloth spreader: Dr. Verdugo
Impression:
CAD
-Stents in 2008 RCA, mid to distal
-Cardiac cath 05/06/2025 with multi vessel CAD
-Consideration for surgical revascularization but pre-op CT chest with ascending aortic and arch calcifications that preclude cross clamp application and increase surgical risk
Abnormal stress test-ischemia in LAD territory 04/2025
Hypertension
Hyperlipidemia
Inferior [place] 2008
Obstructive sleep apnea on CPAP
Prostate cancer status post prostatectomy 2022
Shingles
Colon polypectomy in 2023
Right knee meniscus surgery
Cholecystectomy
Former smoker
Cardiovascular diagnostic testing:
LHC 05/06/25: High-grade proximal LAD stenosis and probable mid LAD stenosis that was angiographically poorly defined. A sizable first diagonal branch (based on 2008 angiogram) is now noted to be 100% occluded proximally with the distal vessel
filling via left to left collaterals. There is a moderate terminal OM branch with a 60% stenosis and there is an eccentric 60% stenosis on the proximal edge of the overlapping Cypher stents from the mid to distal RCA and distal RCA in-stent
restenosis
Echo 05/06/2025: EF 50 to 55%, mild LVH, RV normal size and function, mild aortic sclerosis, mild MR
Lexiscan nuclear stress test 05/05/2025: Moderate to large sized moderate to severe perfusion defects in apex, fixed, mid anterior wall that was reversible. Moderate size moderate perfusion defect in the inferior apical, mid inferior lateral, basal
inferior lateral regions which was partially reversible consistent with ischemia
Plan:
-patient presented for cath due to complaints of exertional chest and arm discomfort
-Cardiac catheterization on 05/06 showed multivessel coronary disease with high-grade proximal LAD and probable mid LAD stenosis, first diagonal with 100% occlusion proximally with distal filling via collaterals, and moderate OM and RCA disease. CT
surgery was consulted to evaluate for surgical revascularization, however after interdisciplinary discussions, stenting was felt to be best option. Patient underwent LAD PCI x 2 on 05/10/2025. Postprocedure patient was noted to have groin hematoma
with some associated hypotension, asymptomatic. Subsequently improved with manual compression
- This morning groin site remains with ecchymoses, and small indurated area, however patient reports no discomfort. Hemoglobin 12.5. Discussed warning signs of worsening hematoma with patient.
- Continue aspirin, Plavix
- Toprol 25 mg daily new this admission. Continue outpatient Norvasc 5 mg daily, Cozaar 100 mg daily, chlorthalidone 25 mg daily
- LDL 79. Continue Lipitor 80 mg every afternoon
- Cardiac rehab
- Ambulatory around unit without difficulty
- Outpatient cardiac follow-up arranged
- ok for DC to home today
Progress Note - Gore Cutter
Subjective
Date of Service: May 11, 2025
Denies chest pain, shortness of breath. Reports has been ambulatory without difficulty. Denies groin pain
Objective
Labs:
05/11/25 03:30
05/11/25 03:30
Labs
Hgb 12.5 g/dL (13.0-18.0) L 05/11/25 03:30
Hct 36.2 % (39.0-52.0) L 05/11/25 03:30
Plt Count 211 10^3/uL (130-400) 05/11/25 03:30
PT 13.5 Sec (11.4-14.6) 05/07/25 03:02
INR 1.00 05/07/25 03:02
APTT 26.1 Sec (23.4-35.0) 05/07/25 03:02
Sodium 139 mmol/L (135-145) 05/11/25 03:30
Potassium 3.3 mmol/L (3.5-5.1) L 05/11/25 03:30
BUN 27 mg/dl (9-20) H 05/11/25 03:30
Creatinine 1.1 mg/dL (0.7-1.3) 05/11/25 03:30
Glucose 141 mg/dl (70-99) H 05/11/25 03:30
Vital Signs and I&O:
Vital Signs
Temp Pulse Resp BP Pulse Ox
98.5 F 74 20 132/81 100
05/11/25 07:46 05/11/25 09:00 05/11/25 09:01 05/11/25 07:39 05/11/25 09:01
Vital Signs
Temp Pulse Resp BP Pulse Ox
98.5 F 74 20 132/81 100
05/11/25 07:46 05/11/25 09:00 05/11/25 09:01 05/11/25 07:39 05/11/25 09:01
Intake & Output
05/09/25 05/10/25 05/11/25 05/12/25
07:59 07:59 07:59 07:59
Intake Total 620 / 620
Output Total 300 / 300
Balance 320 / 320
Physical Exam
Physical Exam
GEN: No distress, awake, alert, oriented x3
HEENT: supple, anicteric, mmm, EOMI
LUNGS: CTA bilaterally, no wheezes/rales
CV: Reg, S1/S2, no murmur
ABD: soft, BS+, NT/ND
EXT: No cyanosis, clubbing, edema
NEURO: Gross non-focal
SKIN: Warm, pink, dry. No rash. Bilateral groin sites without bruit. Left groin site with ecchymoses, and small indurated area on medial aspect of upper thigh, nontender to palpation
--- NOTE | 2025-05-11 10:49 | W.DS.TRANS ---
DC Summary - Yield Clerk
-
Discharge Instructions:
Discharge Diagnosis/Procedures Cardiac catheterization 05/06, Angioplasty with
stent to LAD 05/10
Diet Low Cholesterol
Activity Other activity
Additional Activity no heavy lifting greater than 10 pounds for 2
weeks!
Driving Restrictions No driving for 24 hours
Other Services Cardiac Rehab
Instructions:
Stand-Alone Forms: DC Instructions- Cath/EP Lab
Changes to Home Medications: Yes
Discharge Medications:
DC Medications w/original date entered in [place] [place] [employer]
amlodipine 5 mg tablet 5 mg PO DAILY Blood Pressure 11/23/10
aspirin 81 mg tablet,delayed release 81 mg PO QPM Blood Clot Prevention/Tx 11/23/10
losartan 100 mg tablet (Cozaar) 100 mg PO DAILY Blood Pressure 08/11/11
chlorthalidone 25 mg tablet 25 mg PO DAILY Blood Pressure 07/21/23
fluticasone propionate 50 mcg/actuation nasal spray,suspension (Flonase Allergy Relief) 2 spray intranasal HS Allergies 07/21/23
diphenhydramine HCl 50 mg tablet 50 mg PO HS PRN sleep 05/06/25
docusate sodium 100 mg capsule (Stool Softener) 100 mg PO DAILY 05/06/25
loratadine 10 mg tablet 10 mg PO DAILY 05/06/25
oxycodone-acetaminophen 10 mg-325 mg tablet (Percocet) 1 tab PO Q4H PRN pain 05/06/25
tadalafil 5 mg tablet 5 mg PO DAILY 05/06/25
atorvastatin 80 mg tablet 80 mg PO QPM #30 tabs 05/11/25
clopidogrel 75 mg tablet 75 mg PO DAILY #30 tabs 05/11/25
metoprolol succinate 25 mg tablet,extended release 24 hr 25 mg PO DAILY #30 tabs 05/11/25
Home Medication Changes
lipitor dose increased
toprol and plavix are new
Pending Results: No
[2025-05-11 11:02] VITALS: BP 105/67
--- NOTE | 2025-05-11 12:20 | PTCARENOTE ---
Pt seen by Alyse Christianson NP. Left groin site unchanged, pt denies any discomfort. Telemetry and IV device removed. Discharge instructions reviewed with pt and his regarding activity and driving guidelines, medications and their possible side
effects, wound care, reporting cares and concerns and follow up appt's. Excellent understanding verbalized. Pt escorted out via wheelchair and discharged to home.
--- NOTE | 2025-05-11 12:23 | CM ---
Reviewed chart. Met with Mr. Mason to review discharge plans. He states he is feeling well and maybe able to go home soon. Prior to admission he resides with his significant other in a one story home with three steps to enter. Prior to admission
he was independent with ambulation and adls. He has a CPAP Machine at home and no other DME. He has a prescription plan. Medical work-up in progress. The discharge plan is to return home with his significant other when medically stable.
== END 2025-05-11 12:23 | disposition home or self-care (01) | DRG 322 ==
LOC: IVU 11:44
PROVIDERS: Internal Medicine Interventional Cardiology; Nurse Practitioner; Nurse Practitioner Adult Health; Physician Assistant Medical; ADMITTING PHYSICIAN Internal Medicine Interventional Cardiology; CONSULT PHYSICIAN Thoracic Surgery (Cardiothoracic Vascular Surgery); FAMILY PHYSICIAN Family Medicine
PROC: 4A023N7 Measurement of Cardiac Sampling and Pressure, Left Heart, Percutaneous Approach (ICD-10-PCS; 2025-05-06)
PROC: B2111ZZ Fluoroscopy of Multiple Coronary Arteries using Low Osmolar Contrast (ICD-10-PCS; 2025-05-06)
PROC: B2151ZZ Fluoroscopy of Left Heart using Low Osmolar Contrast (ICD-10-PCS; 2025-05-06)
PROC: 027034Z Dilation of Coronary Artery, One Artery with Drug-eluting Intraluminal Device, Percutaneous Approach (ICD-10-PCS; 2025-05-10)
DX: I25.10 Atherosclerotic heart disease of native coronary artery without angina pectoris (principal); T82.855A Stenosis of coronary artery stent, initial encounter; I25.2 Old myocardial infarction; G47.33 Obstructive sleep apnea (adult) (pediatric); Z85.46 Personal history of malignant neoplasm of prostate; Z90.79 Acquired absence of other genital organ(s); Z86.19 Personal history of other infectious and parasitic diseases; Z87.891 Personal history of nicotine dependence; I10 Essential (primary) hypertension; Z79.899 Other long term (current) drug therapy; Z95.1 Presence of aortocoronary bypass graft; Z80.3 Family history of malignant neoplasm of breast; Z79.82 Long term (current) use of aspirin; Z88.5 Allergy status to narcotic agent; E78.00 Pure hypercholesterolemia, unspecified; E66.9 Obesity, unspecified; Z68.32 Body mass index [BMI] 32.0-32.9, adult; S30.1XXA Contusion of abdominal wall, initial encounter; Y83.1 Surgical operation with implant of artificial internal device as the cause of abnormal reaction of the patient, or of later complication, without mention of misadventure at the time of the procedure; E87.6 Hypokalemia
CPT/HCPCS: 71250; 80048; 80053; 80061; 82040; 82247; 82248; 83036; 83721; 83735; 85027; 85347; 85610; 85730; 86803; 86850; 86900; 86901; 92978; 93005; 93306; 93458; 93880; 99152; 99153; C1725; C1753; C1760; C1769; C1874; C1894; C9600; Q9967

== ENCOUNTER 2025-05-22 08:21 | Emergency (ER) | payer OTHER, SELFPAY ==
[2025-05-22 08:25] VITALS: BP 151/82
--- NOTE | 2025-05-22 09:14 | EDRN ---
Pt in [place] when this RN assumed care of pt.
[2025-05-22 09:57] VITALS: BMI 32.6
[2025-05-22 10:00] VITALS: BP 127/84
[2025-05-22 10:03] VITALS: BP 127/84
--- NOTE | 2025-05-22 10:39 | ED.GENMED ---
History of Present Illness
General
Chief Complaint: DVT/Possible Blood Clot
Source: patient, records and spouse
Time Seen by Provider: 05/22/25 09:00
History of Present Illness
History of Present Illness:
74-year-old male with past medical history of previous OR, known CAD, hypertension, hyperlipidemia, previous prostate cancer recently had cardiac cath and stenting done on May 10 presenting to the emergency department for evaluation of left lower
extremity pain in the proximal left thigh accompanied with some swelling and ecchymosis. Symptoms been a little bit more pronounced over the last 4 days. Patient states no other trauma other than the puncture for the cardiac catheterization. He
denies any focal weakness or numbness, denies any color changes other than the after mentioned ecchymosis, no motor deficiencies, no coughing, chest pain, shortness of breath or any other concerns. Patient continues to take both aspirin and Plavix
as directed by his cardiology team.
Past History
Past History
ED Past Medical History: CAD, Cancer, HTN, Hypercholesterolemia and OR
ED Past Surgical History: Cardiac (Coronary angioplasty and stenting), Cholecystectomy, Urological and Other
Social History
Tobacco: Smoker
Alcohol: Daily
Drug: None
Personal:
Living: with family
Employment: Employed
Family History
Family History: Other (Noncontributory); Negative Diabetes, Hypertension, Early CAD, Asthma or Cancer
Review of Systems
Review of Systems
All Other Systems: ROS reviewed and negative except as documented in HPI and ROS
Phy Exam
Physical Exam
Physical Exam:
GENERAL: Alert , in no apparent distress
HEAD: Normocephalic atraumatic
EYE: conjunctiva clear
NECK: Supple
ENT: o/p clr, mmm.
CARDIAC: Regular rate and rhythm
LUNGS: Clear breath sounds bilaterally, no acute respiratory distress, no wheezes/rales/rhonchi
NEUROLOGICAL: Alert and oriented
SKIN: Warm and dry, skin intact. Ecchymosis proximal to distal left lower extremity
MUSCULOSKELETAL: well perfused. Edema to the left lower extremity noted, easily palpable pedal and tibial pulse. Cap refill less than 2 seconds and sensation is grossly intact to light touch. There is some mild tenderness to the proximal left
thigh.
PSYCH: Normal and appropriate interaction.
Scores
Heart Failure Risk
Heart Failure Risk Score: Not Applicable
Heart Score for Chest Pain Patients
STEMI patient?: Not applicable
Withdrawal Assessment of Alcohol
Withdrawal Assessment Completed?: Not applicable
Course
Orders/Labs/Results
Orders:
Orders
05/22/25 08:27
Periph Venous Lwr Ext Left US [US Periph Venous LOWER Ext LT] Urgent
Comment:
Reason For Exam: swelling, pain
05/22/25 10:58
Basic Metabolic Panel Urgent
Complete Blood Count/With Diff Urgent
Abnormal Lab Results
05/22/25
10:58
RBC 4.28 L 10^6/uL
(4.70-6.10)
MCV 98.6 H fL
(80.0-94.0)
MCH 34.1 H pg
(27.0-31.0)
Glucose 110 H mg/dl
(70-99)
05/22/25 10:58
05/22/25 10:58
Vital Signs
Initial and Last Documented VS:
Initial Vital Signs
Pulse Resp BP Pulse Ox
79 18 151/82 95
05/22/25 08:25 05/22/25 08:25 05/22/25 08:25 05/22/25 08:25
Last Documented Vital Signs
Pulse Resp BP Pulse Ox
84 16 120/96 97
05/22/25 11:42 05/22/25 11:42 05/22/25 11:42 05/22/25 11:42
MDM/Problems Addressed
Differential Diagnosis Includes:
Pseudoaneurysm
DVT
Arterial occlusion
Venous stasis
Peripheral vascular disease
Anemia
MDM/Problems Addressed:
74-year-old male status post recent cardiac catheterization and stenting presenting to the emergency department for left lower extremity swelling and ecchymosis. Ultrasound had been ordered from triage and shows a thigh hematoma measuring
approximately 6 x 3 cm. No pseudoaneurysm and no DVT. I suspect the rest of the ecchymosis along the distal portion is likely from the hematoma and patient being on dual action platelet therapy. Will check labs to rule out anemia or
thrombocytopenia or any renal dysfunction. Discussed with the patient compression ice and elevation to help minimize the swelling. Patient has a follow-up scheduled with cardiology on May 30.
Chronic conditions affecting care: CAD
Acute Exacerbation and/or Progression of Chronic Illness: CAD
*Radiology
Radiology exam reviewed: radiology read reviewed
*Pulse Oximetry
SaO2: 98
Oxygen Mode of Delivery: Room air
Patient hypoxic: no
*Critical Care Note
Total Time (30-74mins, 75-104mins- exclusive of procedures): Not Applicable
Data Reviewed
Review of Other/Old Records Reveals: Labs, Records, Operative Reports and Discharge Summary
Source: patient, records and spouse
ED Attending Note
-
Portions of this chart may have been created with voice recognition software.� Occasional wrong word or��sound alike� substitutions may have occurred due to the inherent limitations of voice recognition software.
Discharge Plan
Departure
Patient Disposition: Home (Routine Discharge)
Date of Disposition: 05/22/25
Time of Disposition: 11:10
Patient with high blood pressure during this ER visit?: No
Discharge Problem:
Hematoma following angiography
Instructions: Hematoma
Prescriptions:
No Action
amlodipine 5 MG tablet
5 mg PO DAILY
aspirin 81 MG tablet,delayed release (DR/EC)
81 mg PO QPM
losartan [Cozaar] 100 MG tablet
100 mg PO DAILY
chlorthalidone 25 mg Tablet
25 mg PO DAILY
fluticasone propionate [Flonase Allergy Relief] 50 mcg/actuation Scheller,Suspension
2 spray INTRANASAL HS
diphenhydramine HCl 50 mg Tablet
50 mg PO HS PRN (Reason: sleep)
oxycodone-acetaminophen [Percocet] 10-325 mg Tablet
1 tab PO Q4H PRN (Reason: pain)
docusate sodium [Stool Softener] 100 mg Capsule
100 mg PO DAILY
loratadine 10 mg Tablet
10 mg PO DAILY
tadalafil 5 mg Tablet
5 mg PO DAILY
atorvastatin 80 mg Tablet
80 mg PO QPM Qty: 30 5RF
clopidogrel 75 mg Tablet
75 mg PO DAILY Qty: 30 11RF
metoprolol succinate 25 mg Tablet Extended Release 24 Hr
25 mg PO DAILY Qty: 30 11RF
Referrals:
Alexey Moore MD [Family Provider, Family Practice]
Interventions
Interventions:
*Risk Screen - Suicide Last Done: 05/22/25 08:25
*General Assessment Last Done: 05/22/25 09:56
*Neglect/Abuse Screening Last Done: 05/22/25 09:56
*ED- Fall Risk Assessment Last Done: 05/22/25 09:55
*ED COVID-19 Vaccine History Last Done: 05/22/25 09:55
*Nursing Disposition Last Done: 05/22/25 11:42
ED- Cardiac Assessment Last Done: 05/22/25 09:57
ED- Pulmonary Assessment Last Done: 05/22/25 09:57
ED-Peripheral Vascular Assessment Last Done: 05/22/25 09:57
ED-Skin Assessment Last Done: 05/22/25 09:57
Discharge Date and Time
Discharge Date/Time: 05/22/25 11:43
Print Language: TURKMEN
--- NOTE | 2025-05-22 10:55 | EDRN ---
Bloods drawn by [facility] ED PCT and sent to lab.
[2025-05-22 11:08] LABS: Hematocrit 42.2 % (39.0-52.0); Hemoglobin 14.6 g/dL (13.0-18.0); Mean Corp Hgb Conc. 34.6 g/dL (33.0-37.0); Mean Corpuscular Volume 98.6 fL (80.0-94.0); Nucleated Red Blood Cells % 0 % (-); Platelet Count 278 10^3/uL (130-400); Red Cell Dist. Width 13.2 % (11.5-14.5)
[2025-05-22 11:20] LABS: Blood Urea Nitrogen 12 mg/dl (9-20); Calcium 9.6 mg/dl (8.4-10.2); Carbon Dioxide 30 mmol/L (22-30); Chloride 102 mmol/L (98-107); Estimated Creatinine Clearance 86 ml/min; Glucose 110 mg/dl (70-99); Potassium 3.8 mmol/L (3.5-5.1); Sodium 138 mmol/L (135-145); eGFR > 60.00
[2025-05-22 11:42] VITALS: BP 120/96
== END 2025-05-22 11:43 | disposition home or self-care (01) ==
LOC: EMR 08:21
PROVIDERS: Physician Assistant Medical; EMERGENCY PHYSICIAN Emergency Medicine; FAMILY PHYSICIAN Family Medicine
DX: S70.12XA Contusion of left thigh, initial encounter (principal); X58.XXXA Exposure to other specified factors, initial encounter; E78.00 Pure hypercholesterolemia, unspecified; I10 Essential (primary) hypertension; I25.10 Atherosclerotic heart disease of native coronary artery without angina pectoris; I25.2 Old myocardial infarction; F17.200 Nicotine dependence, unspecified, uncomplicated; Z82.49 Family history of ischemic heart disease and other diseases of the circulatory system; Z85.46 Personal history of malignant neoplasm of prostate; Z90.49 Acquired absence of other specified parts of digestive tract; Z95.5 Presence of coronary angioplasty implant and graft
CPT/HCPCS: 99284; 80048; 85025; 93971